=== PATIENT | female | born 1985 | race Hispanic/Latino ===

== ENCOUNTER 2024-06-17 15:07 | Emergency (ER) | payer SELFPAY ==
[2024-06-17 15:11] VITALS: BP 127/80
[2024-06-17] MEDS: TYLENOL 1000 MG PO (15:20)
[2024-06-17 15:50] LABS: % Basophils 0.2 % (0-2); % Immature Granulocytes 0.2 % (0-0.5); % Lymphocytes 20.4 % (20.5-51.1); % Neutrophils 68.2 % (42.2-75.2); Absolute Lymphocytes 0.9 10^3/uL (1.2-3.4); Absolute Monocytes 0.5 10^3/uL (0.1-0.6); Hematocrit 35.7 % (37.0-47.0); Hemoglobin 12.1 g/dL (12.0-16.0); Mean Corp Hgb Conc. 33.9 g/dL (33.0-37.0); Mean Corpuscular Hgb 29.4 pg (27.0-31.0); Mean Corpuscular Volume 86.7 fL (81.0-99.0); Nucleated Red Blood Cells % 0 %; Platelet Count 242 10^3/uL (130-400); Red Blood Cell Count 4.12 10^6/uL (4.20-5.40); Red Cell Dist. Width 12.4 % (11.5-14.5); White Blood Cell Count 4.5 10^3/uL (4.8-10.8)
[2024-06-17 16:07] LABS: COVID-19 Antigen Negative (Negative)
[2024-06-17 16:26] LABS: HCG, Serum Qualitative Screen Negative
--- NOTE | 2024-06-17 16:26 | ED.GENMED ---
History of Present Illness
General
Chief Complaint: Headache
Source: patient
Exam Limitations: none
Time Seen by Provider: 06/17/24 16:25
Nursing documentation reviewed up to this point in time: agreed with
History of Present Illness
History of Present Illness:
Patient is a 38-year-old Ghanaian-speaking female who presents to the ER for chills and headache for 3 days. Patient reports she has had fevers body aches and headache. No other sick contacts at home. She has not been vaccinated against the flu.
She denies any shortness of breath. Mild cough. No sore throat. No vomiting or diarrhea.
Review of Systems
Review of Systems
Allergies reviewed?: Yes
All Other Systems: ROS reviewed and negative except as documented in HPI and ROS
Constitutional: Reports fever, fatigue and chills
EENT: Reports no symptoms
Respiratory: Reports cough; Denies trouble breathing
Cardiac: Reports no symptoms
ABD/GI: Reports no symptoms; Denies nausea or vomiting
Musculoskeletal: Reports no symptoms
Skin: Reports no symptoms
Neurological: Reports headache
Psychiatric: Reports no symptoms
Phy Exam
General Physical Exam
General Presentation: no apparent distress
General age: appears stated age
General Skin: warm and dry
General Habitus: normal
General Mental: alert
General Hydration: appears well hydrated
Cardiovascular Exam
Cardiovascular Exam: regular rate/rhythm, no murmur and normal peripheral pulses
Pulmonary Exam
Pulmonary Exam: lungs clear and no respiratory distress
Neurological Exam
Neurological Exam: alert and oriented x3
Musculoskeletal Exam
Musculoskeletal Exam: full ROM
Skin Exam
Skin Exam: normal color and warm/dry
Psychiatric Exam
Psychiatric Exam: normal mood/affect
Sepsis
Sepsis Screening
Sepsis Assessment: Sepsis Ruled Out
Sepsis Screen
Sepsis Screen: Sepsis Ruled Out
Date: 06/17/24
Time: 22:55
Course
Orders/Labs/Results
Orders:
Orders
06/17/24 15:16
Test Result ONCE
06/17/24 15:19
Acetaminophen [Tylenol] 1,000 mg .ROUTE .STK-MED ONE
Acetaminophen [Tylenol] 1,000 mg PO NOW STA
06/17/24 15:21
COVID-19 Antigen Urgent
Source: Nasal Swab
Complete Blood Count/With Diff Urgent
Comprehensive Metabolic Panel Urgent
HCG, Serum Qualitative Screen Urgent
Influenza A+B Rapid Molecular Urgent
MARIA DEL CARMEN Source: Nasal Swab
Specimen Description:
Abnormal Lab Results
06/17/24
15:21
WBC 4.5 L 10^3/uL
(4.8-10.8)
RBC 4.12 L 10^6/uL
(4.20-5.40)
Hct 35.7 L %
(37.0-47.0)
Absolute Lymphs (auto) 0.9 L 10^3/uL
(1.2-3.4)
Lymphocytes % 20.4 L %
(20.5-51.1)
Monocytes % 11.0 H %
(1.7-9.3)
Sodium 133 L mmol/L
(135-145)
Creatinine 0.5 L mg/dL
(0.6-1.0)
Glucose 106 H mg/dl
(70-99)
06/17/24 15:21
06/17/24 15:21
Vital Signs
Initial and Last Documented VS:
Initial Vital Signs
Temp Pulse Resp BP Pulse Ox
101.9 F H 109 18 127/80 98
06/17/24 15:11 06/17/24 15:11 06/17/24 15:11 06/17/24 15:11 06/17/24 15:11
Last Documented Vital Signs
Temp Pulse Resp BP Pulse Ox
98.9 F 99 19 127/80 100
06/17/24 17:09 06/17/24 17:09 06/17/24 17:09 06/17/24 15:11 06/17/24 17:09
MDM/Problems Addressed
Differential Diagnosis Includes:
viral syndrome ,flu,covid
MDM/Problems Addressed:
Patient flu positive. Patient Ghanaian-speaking history and instructions were reviewed with language line. Patient nontoxic discussed supportive care stable for discharge home.
Patient given [facility] as well as [facility] for follow-up
*Critical Care Note
Total Time (30-74mins, 75-104mins- exclusive of procedures): Not Applicable
ED Attending Note
-
Portions of this chart may have been created with voice recognition software.� Occasional wrong word or��sound alike� substitutions may have occurred due to the inherent limitations of voice recognition software.
Discharge Plan
Departure
Patient Disposition: Home (Routine Discharge)
Date of Disposition: 06/17/24
Time of Disposition: 17:21
Patient with high blood pressure during this ER visit?: No
Condition: Fair
Covid-19: Not Applicable
Discharge Problem:
Influenza A
Instructions: Flu in adults - Discharge instructions
Prescriptions:
No Action
famotidine 20 mg tablet
20 mg PO BID PRN (Reason: heartburn) Qty: 60 0RF
Referrals:
[facility] [Provider Group]
[facility] [Outside]
NONE,* [Family Provider] -
Activity Restrictions/Additional Instructions:
Aseg�rese de descansar lo suficiente. Nadiya muchos l�quidos. puede alternar entre Tylenol e ibuprofeno para la fiebre/escalofr�os/lukas corporales. seguimiento en la cl�matthew en los pr�ximos d�as.
[facility] [place]: [phone]
Interventions
Interventions:
*Risk Screen - Suicide Last Done: 06/17/24 17:10
*General Assessment Last Done: 06/17/24 17:10
*Neglect/Abuse Screening Last Done: 06/17/24 17:10
ED- Fall Risk Assessment Last Done: 06/17/24 17:10
*ED COVID-19 Vaccine History Last Done: 06/17/24 17:10
*Nursing Disposition Last Done: 06/17/24 17:33
ED- Neurological Assessment Last Done: 06/17/24 17:10
Discharge Date and Time
Discharge Date/Time: 06/17/24 17:34
Print Language: HUNGARIAN
[2024-06-17 16:52] LABS: ALT (SGPT) 22 U/L (0-35); AST (SGOT) 27 U/L (14-36); Albumin 4.2 g/dl (3.5-5.0); Alkaline Phosphatase 83 U/L (38-126); Blood Urea Nitrogen 7 mg/dl (7-17); Calcium 8.6 mg/dl (8.4-10.2); Carbon Dioxide 25 mmol/L (22-30); Chloride 99 mmol/L (98-107); Glucose 106 mg/dl (70-99); Potassium 4.1 mmol/L (3.5-5.1); Sodium 133 mmol/L (135-145); Total Bilirubin 0.3 mg/dl (0.2-1.3); Total Protein 7.8 g/dl (6.3-8.2); eGFR > 60.00
== END 2024-06-17 17:34 | disposition home or self-care (01) ==
LOC: EMR 15:07
PROVIDERS: EMERGENCY PHYSICIAN Emergency Medicine
DX: J10.1 Influenza due to other identified influenza virus with other respiratory manifestations (principal); Z11.52 Encounter for screening for COVID-19
CPT/HCPCS: 99283; 80053; 84703; 85025; 87502; 87811

== ENCOUNTER 2025-03-04 20:03 | Emergency (ER) | payer SELFPAY ==
[2025-03-04 20:08] VITALS: BP 111/78
[2025-03-04 20:41] LABS: Hematocrit 35.1 % (37.0-47.0); Hemoglobin 11.8 g/dL (12.0-16.0); Mean Corp Hgb Conc. 33.6 g/dL (33.0-37.0); Mean Corpuscular Volume 87.3 fL (81.0-99.0); Nucleated Red Blood Cells % 0 %; Platelet Count 304 10^3/uL (130-400); Red Cell Dist. Width 12.5 % (11.5-14.5)
[2025-03-04 20:43] LABS: Urine Character Slightly Cloudy (Clear)
[2025-03-04 20:56] LABS: Urine Squamous Cell >30 /LPF (Few)
[2025-03-04 21:15] LABS: ALT (SGPT) 16 U/L (0-35); AST (SGOT) 19 U/L (14-36); Albumin 4.4 g/dl (3.5-5.0); Alkaline Phosphatase 57 U/L (38-126); Blood Urea Nitrogen 6 mg/dl (7-17); Calcium 9.7 mg/dl (8.4-10.2); Carbon Dioxide 25 mmol/L (22-30); Chloride 101 mmol/L (98-107); Glucose 137 mg/dl (70-99); Lipase 49 U/L (23-300); Potassium 3.8 mmol/L (3.5-5.1); Sodium 132 mmol/L (135-145); Total Protein 7.5 g/dl (6.3-8.2); eGFR > 60.00
[2025-03-04 21:17] LABS: HCG, Serum Qualitative Screen Positive
[2025-03-04 21:45] VITALS: BMI 40.5
[2025-03-04 21:50] VITALS: BP 114/65
--- NOTE | 2025-03-04 22:29 | ED.GENMED ---
History of Present Illness
General
Chief Complaint: Abdominal Pain
Source: patient and spouse
Time Seen by Provider: 03/04/25 22:13
History of Present Illness
History of Present Illness:
Monegasque language used for interpretation [id number]
38-year-old female presenting to the emergency department for evaluation of upper abdominal pain that has been ongoing for 4 days accompanied with some nausea, pain described to be mild but intermittently will increase in intensity, nonradiating,
has not attempted any medications for relief. She notes that she has not had her menstrual in 2 months and is questioning if she is . Denies any vaginal bleeding or discharge, no urinary symptoms or bowel changes, no chest pain or
shortness of breath. She states that a few years ago she had similar pain which is when she was diagnosed with a stomach ulcer, treated with medications but is currently not taking any medications. She offers no other concerns at this time.
Past History
Past History
ED Past Medical History: Other (Previous gastric ulcer)
ED Past Surgical History: Gynecological
Social History
Tobacco: Non-smoker
Alcohol: None
Drug: None
Personal:
Living: with family
Review of Systems
Review of Systems
All Other Systems: ROS reviewed and negative except as documented in HPI and ROS
Phy Exam
Physical Exam
Physical Exam:
GENERAL: Alert , in no apparent distress
EYE: clear conjunctiva b/l
HEAD: NCAT
ENT: o/p clr, mmm.
CARDIAC: Regular rate and rhythm .
LUNGS: Clear breath sounds bilaterally, no acute respiratory distress, no wheezes/rales/rhonchi
ABDOMEN: Soft, without focal tenderness, no r/g, no cvat
NEUROLOGICAL: Alert and oriented
SKIN: Warm and dry, skin intact.
MUSCULOSKELETAL: No edema, well perfused.
PSYCH: Normal and appropriate interaction.
Scores
Heart Failure Risk
Heart Failure Risk Score: Not Applicable
Heart Score for Chest Pain Patients
STEMI patient?: Not applicable
Withdrawal Assessment of Alcohol
Withdrawal Assessment Completed?: Not applicable
Course
Orders/Labs/Results
Orders:
Orders
03/04/25 20:12
Test Result ONCE
03/04/25 20:31
Complete Blood Count/With Diff Urgent
Comprehensive Metabolic Panel Urgent
Lipase Urgent
, Serum Qualitative Screen [HCG, Serum Qualitative Screen] Urgent
Urinalysis Reflex To Culture Urgent
Date Specimen was Collected: 03/04/25
Time Specimen was Collected: 20:12
Urine Microscopic Reflex Cult Urgent
Urine Culture Urgent
MARIA DEL CARMEN Source: U
Specimen Description:
Date Specimen was Collected: 03/04/25
Time Specimen was Collected: 20:12
03/04/25 22:32
US 1st Trimester Urgent
Comment:
Reason For Exam: abd pain,
Abnormal Lab Results
03/04/25
20:31
RBC 4.02 L 10^6/uL
(4.20-5.40)
Hgb 11.8 L g/dL
(12.0-16.0)
Hct 35.1 L %
(37.0-47.0)
Sodium 132 L mmol/L
(135-145)
BUN 6 L mg/dl
(7-17)
Creatinine 0.5 L mg/dL
(0.6-1.0)
Glucose 137 H mg/dl
(70-99)
Urine Ketones 2+ A
(Negative)
Ur Occult Blood Reflex 3+ A
(Negative)
Urine Nitrite (Reflex) Positive A
(Negative)
Leukocyte Esterase Rfl 3+ A
(Negative)
Urine RBC 7-10 A /HPF
(0-2)
Urine WBC (Reflex) 11-15 A /HPF
(0-5)
Urine Bacteria (Reflex) Many A
(Negative)
Urine Albumin (Reflex) 2+ A
(Neg - Trace)
03/04/25 20:31
03/04/25 20:31
Vital Signs
Initial and Last Documented VS:
Initial Vital Signs
Temp Pulse Resp BP Pulse Ox
98.2 F 70 15 111/78 100
03/04/25 20:08 03/04/25 20:08 03/04/25 20:08 03/04/25 20:08 03/04/25 20:08
Last Documented Vital Signs
Temp Pulse Resp BP Pulse Ox
98.2 F 69 18 114/65 99
03/04/25 20:08 03/04/25 21:51 03/04/25 21:51 03/04/25 21:50 03/04/25 22:29
MDM/Problems Addressed
Differential Diagnosis Includes:
GERD
Gastritis
PUD
Choley
Pancreatitis
Less concern for atypical ACS
Muscle strain
MDM/Problems Addressed:
Monegasque language line [id number] used for interpretation
38-year-old female presenting to the ER for evaluation of upper abdominal/epigastric pain over the last 4 days accompanied with nausea. Patient concern for possible . Labs were initiated in triage. At first I accidentally told the
patient she was not however upon review of her labs patient did have a positive test and notified her of this positive finding. I do suspect this is likely the cause for patient's current symptoms. She does have a urinalysis
that is nitrite positive and 3+ leukocytes with 11-15 WBCs but there is greater than 30 squamous cells and many bacteria and patient was adamant she was not having any urinary symptoms. Given her positive test we will still consider
treating with an antibiotic. Patient is , no miscarriages or abortions. She last followed at [facility] and I encouraged her to follow back up there. Will obtain ultrasound to rule out ectopic . Disposition pending
*Radiology
Radiology exam reviewed: radiology read reviewed
*Pulse Oximetry
SaO2: 99
Oxygen Mode of Delivery: Room air
Patient hypoxic: no
*Critical Care Note
Total Time (30-74mins, 75-104mins- exclusive of procedures): Not Applicable
Patient Management
Escalation/DeEscalation of care consider admission/obs:
Monegasque language line [id number] used for interpretation
Discussed results of patient's ultrasound with the patient, she is 8 weeks and 4 days , no complications seen. Prescriptions for Keflex due to patient's possible UTI as well as Pepcid sent to pharmacy. Encouraged follow-up with the [facility] clinic that she had followed up with previously. Discussed return precautions. Stable for discharge.
ED Attending Note
-
Portions of this chart may have been created with voice recognition software.� Occasional wrong word or��sound alike� substitutions may have occurred due to the inherent limitations of voice recognition software.
Discharge Plan
Departure
Patient Disposition: Home (Routine Discharge)
Date of Disposition: 03/05/25
Time of Disposition: 00:05
Patient with high blood pressure during this ER visit?: No
Discharge Problem:
8 weeks gestation of , UTI (urinary tract infection)
Instructions: Stomach Pain in Early
Prescriptions:
New
famotidine [Pepcid] 20 mg tablet
20 mg PO DAILY Qty: 30 0RF
cephalexin 500 mg capsule
500 mg PO BID 7 Days Qty: 14 0RF
No Action
famotidine 20 mg tablet
20 mg PO BID PRN (Reason: heartburn) Qty: 60 0RF
Referrals:
UNKNOWN - PT DOES,NOT KNOW [Unknown Provider]
Interventions
Interventions:
*Risk Screen - Suicide Last Done: 03/04/25 20:08
*General Assessment Last Done: 03/04/25 20:08
*Neglect/Abuse Screening Last Done: 03/04/25 20:08
*ED- Fall Risk Assessment Last Done: 03/04/25 21:45
*ED COVID-19 Vaccine History Last Done: 03/04/25 20:08
*ED Influenza Vaccine History Last Done: 03/04/25 21:45
AU-Wvckvv-Wazxwfvtsk Assessment Last Done: 03/04/25 21:47
Discharge Date and Time
Print Language: SOMALI
== END 2025-03-05 00:30 | disposition home or self-care (01) ==
LOC: EMR 20:03
PROVIDERS: Emergency Medicine; EMERGENCY PHYSICIAN Student in an Organized Health Care Education/Training Program
DX: O23.41 Unspecified infection of urinary tract in pregnancy, first trimester (principal); N39.0 Urinary tract infection, site not specified; O09.521 Supervision of elderly multigravida, first trimester; Z87.11 Personal history of peptic ulcer disease; Z3A.08 8 weeks gestation of pregnancy
CPT/HCPCS: 99284; 76801; 80053; 81003; 81015; 83690; 84703; 85025; 87086